=== PATIENT | male | born 1955 | race Caucasian/White ===

== ENCOUNTER 2016-08-16 17:17 | Emergency (ER) | payer OTHER ==
[~2016-08-16] VITALS: Ht 182.9 cm; Wt 100.0 kg
[~2016-08-16 17:17] MED LIST: ACCUPRIL5 MG OR; ASPIRIN EC81 MG PO; CEPHALEXIN500 MG OR; CLOPIDOGREL75 MG PO; EFFIENT10 MG OR; FAMOTIDINE20 M1 PO; FENOFIBRATE54 MG; FENOFIBRATE54 MG PO; IMDUR30 MG PO; LORTAB5 OR; METOPROL TAR50 MG PO; NITROSTAT0.4 MG PO; PEPCID AC20 MG OR; QUINAPRIL HCL10 MG PO; SIMVASTATIN80 MG PO; TOPROL XL100 MG OR; ZOCOR80 MG OR
[2016-08-16] MEDS ORDERED: ASPIRIN EC325 MG PO (17:26)
[2016-08-16] MEDS ORDERED: LEVOTHYROXIN75 MCG PO (17:27)
[2016-08-16 18:48] LABS: HEMATOCRIT 36.8 % (39.0-50.0); HEMOGLOBIN 12.3 g/dl (14.0-18.0); IMMATURE GRANULOCYTES 0.3 % (0.0-1.0); MEAN CELL VOLUME 94.6 fL CALC (80.0-100.0); MEAN CORPUSCULAR HGB 31.6 pG CALC (26.0-32.0); MEAN CORPUSCULAR HGB CONC 33.4 g/L CALC (32.0-36.0); NEUT# 5.61 thou/uL (1.82-7.42); RED BLOOD COUNT 3.89 mill/uL (4.70-6.10)
[2016-08-16 19:04] LABS: ALBUMIN 4.1 g/dL (3.2-5.0); BILIRUBIN, TOTAL 0.9 mg/dL (0.0-1.4); CALCIUM 8.5 mg/dL (8.4-10.2); CREATININE 1.6 mg/dL (0.7-1.3); POTASSIUM 3.5 mmol/l (3.5-5.1); TOTAL PROTEIN 7.3 g/dL (6.3-8.2)
[2016-08-16 20:18] LABS: INFLUENZA A NONE DETECTED (NONE DETECT); INFLUENZA B NONE DETECTED (NONE DETECT)
[2016-08-16 21:06] LABS: URINE BILIRUBIN - DIPSTICK NEGATIVE (NEGATIVE); URINE BLOOD DIPSTICK NEGATIVE (NEGATIVE); URINE CLARITY CLEAR; URINE COLOR YELLOW; URINE GLUCOSE - DIPSTICK NEGATIVE (NEGATIVE); URINE KETONE NEGATIVE (NEGATIVE); URINE LEUK ESTERASE NEGATIVE (NEGATIVE); URINE NITRITE - DIPSTICK NEGATIVE (Negative); URINE PROTEIN - DIPSTICK NEGATIVE (NEG-TRACE); URINE UROBILINOGEN - DIPSTICK 0.2 E.U./dL (0.2)
[2016-08-16] MEDS ORDERED: AMOXICILLIN500 MG PO (21:15)
[2016-08-16] MEDS ORDERED: ZOFRAN ODT4 MG PO (21:18)
[2016-08-16 21:30] VITALS: BP 131/74
== END 2016-08-16 21:47 | disposition home or self-care (01) | DRG 866 ==
LOC: ED 17:17
PROVIDERS: Emergency Medicine
DX: B34.9 Viral infection, unspecified (principal); J02.9 Acute pharyngitis, unspecified; R50.9 Fever, unspecified; M79.1 Myalgia; R11.2 Nausea with vomiting, unspecified

== ENCOUNTER 2020-05-02 17:41 | Emergency (ER) | payer OTHER ==
[~2020-05-02] VITALS: Ht 182.9 cm; Wt 100.0 kg
[~2020-05-02 17:41] MED LIST changes: +AMOXICILLIN500 MG PO; +ASPIRIN EC325 MG PO; +LEVOTHYROXIN75 MCG PO; +ZOFRAN ODT4 MG PO
[2020-05-02] MEDS ORDERED: TOPROL XL50 MG PO (18:33)
[2020-05-02] MEDS ORDERED: VITAMIN D5000 UNIT PO (18:34)
[2020-05-02] MEDS ORDERED: ASPIRIN ENTERIC81 MG PO (18:34)
[2020-05-02 18:46] LABS: IMMATURE GRANULOCYTES 0.5 % (0.0-5.0); MEAN CORPUSCULAR HGB 27.2 pG CALC (26.0-32.0); MEAN CORPUSCULAR HGB CONC 30.4 g/dL CAL (32.0-36.0); NEUT# 7.58 thou/uL (1.82-7.42); RED BLOOD COUNT 3.6 mill/uL (4.70-6.10)
[2020-05-02 18:48] LABS: HEMATOCRIT 32.2 % (39.0-50.0); HEMOGLOBIN 9.8 g/dl (14.0-18.0); MEAN CELL VOLUME 89.4 fL CALC (80.0-100.0)
[2020-05-02 19:06] LABS: ALBUMIN 3.8 g/dL (3.2-5.0); ANION GAP 11 (6-22 (CALC)); BUN 22 mg/dL (8-23); BUN/CREATININE RATIO 17 (12-20 (CALC)); CARBON DIOXIDE 28 mmol/l (22-30); CHLORIDE 106 mmol/l (95-108); CREATININE 1.3 mg/dL (0.7-1.3); GFR 55 ML/MIN (>=60 (CALC)); GFR FOR AFR.AMER. > 60 ML/MIN (>=60 (CALC)); LIPASE 52 u/l (23-300); POTASSIUM 4.2 mmol/l (3.5-5.1); SODIUM 141 mmol/l (137-146); TOTAL PROTEIN 7.4 g/dL (6.3-8.2)
[2020-05-02 19:17] LABS: ALKALINE PHOSPHATASE 156 u/l (38-126); BILIRUBIN, TOTAL 0.4 mg/dL (0.0-1.4); SGOT/AST 71 u/l (19-48)
[2020-05-02] MEDS ORDERED: TESSALON PERLE100 MG PO (20:02)
[2020-05-02] MEDS ORDERED: CARAFATE1 GM PO (20:02)
[2020-05-02 20:10] VITALS: BP 151/72
== END 2020-05-02 20:10 | disposition home or self-care (01) | DRG 204 ==
LOC: ED 17:41
DX: R05 Cough (principal); K21.9 Gastro-esophageal reflux disease without esophagitis; D64.9 Anemia, unspecified; I10 Essential (primary) hypertension; I25.10 Atherosclerotic heart disease of native coronary artery without angina pectoris; I25.2 Old myocardial infarction; Z95.1 Presence of aortocoronary bypass graft; Z20.828 Contact with and (suspected) exposure to other viral communicable diseases